=== PATIENT | female | born 1975 | race Caucasian/White ===

== ENCOUNTER 2016-11-20 09:03 | Emergency (ER) | payer OTHER ==
[~2016-11-20 09:03] MED LIST: CYCL5TAB PO; IBUP800T23 PO; Z.0.BCPILL PO
[2016-11-20 09:10] VITALS: BP 141/79; PULSE 84; RESP 20; TEMP 98.4; O2SAT 100
[2016-11-20] MEDS ORDERED: BIRTH CONTROL (09:15)
--- NOTE | 2016-11-20 09:32 | PD ---
HPI Chief Complaint: Anxiety Time Seen by Provider: 09:15 Travel History International Travel<30 days: No Contact w/Intl Traveler<30days: No Traveled to known affect area: No History of Present Illness HPI The patient was seen and examined in the presence of the nurse. This patient complains of feeling depressed and anxious for a long time, many years. However it's been worse lately. She is now having some vague suicidal thoughts. She does not have any specific plan and has not acted upon it. She doesn't think that she would. She does not have any physical complaints. She is a healthy person with no physical illness. Symptoms of depression and anxiety are moderate. PFSH Past Medical History Diminished Hearing: No Immunizations Current: Yes ?: Not Menopausal: No Social History Alcohol Use: Yes (OCCAS) Tobacco Use: No Substance Use: No Allergies-Medications (Allergen,Severity, Reaction): Coded Allergies: No Known Allergies (Unverified , 11/20/16) Reported Meds & Prescriptions Reported Meds & Active Scripts Active Reported [ Control ] Review of Systems General / Constitutional: No: Fever HENT: No: Headaches Cardiovascular: No: Chest Pain or Discomfort Respiratory: No: Cough Physical Exam Narrative CARDIOVASCULAR: Regular rate and rhythm without murmur. Extremities showed no edema or varicosities. RESPIRATORY: Respiratory effort unlabored, no retractions or use of accessory muscles. Breath sounds are clear and symmetric. GASTROINTESTINAL: Abdomen soft, non-tender, nondistended. Positive bowel sounds. No hepato-splenomegaly, or palpable masses. No guarding. SKIN: Focused skin assessment reveals no rash or ulcers. Skin is warm and dry. Palpation shows no induration or nodules. Data Data Last Documented VS Vital Signs Date Time Temp Pulse Resp B/P Pulse Ox O2 Delivery O2 Flow Rate FiO2 11/20/16 09:10 98.4 84 20 141/79 100 MDM Medical Decision Making Medical Screen Exam Complete: Yes Emergency Medical Condition: Yes Medical Record Reviewed: Yes Differential Diagnosis Depression, suicidal ideation, adjustment disorder, anxiety Narrative Course I have reviewed the patient's electronic medical record. Patient is medically clear and stable. She has normal exam physically and normal vital signs and no physical complaint. I don't feel she needs any medical workup. However she needs psychiatric screening at the main hospital. She is agreeable and voluntary and therefore not appropriate to do Courtney act. She has a friend who is going to drive her to the main hospital to get psych screening I called to [facility] and gave report Diagnosis Primary Impression: Suicidal ideation Additional Impressions: Depression Qualified Code: F32.9 - Depression, unspecified depression type Anxiety Additional Instructions: Proceed to [facility] ER for psychiatric evaluation Med/Other Pt SpecificInfo: Other Disposition: 01 DISCHARGE HOME Condition: Stable Ricky Meléndez MD November 20, 2016 09:32
== END 2016-11-20 09:41 | disposition home or self-care (01) ==
LOC: PHEFT 09:03
DX: R45.851 Suicidal ideations (principal); F32.9 Major depressive disorder, single episode, unspecified; F41.9 Anxiety disorder, unspecified
CPT/HCPCS: 99283

== ENCOUNTER 2016-11-20 10:05 | Emergency (ER) | payer OTHER ==
[~2016-11-20] VITALS: Ht 165.1 cm; Wt 60.0 kg
[~2016-11-20 10:05] MED LIST changes: +BIRTH CONTROL
[2016-11-20 10:06] VITALS: BP 134/83; PULSE 67; RESP 15; TEMP 98.2; O2SAT 98
--- NOTE | 2016-11-20 10:39 | PD ---
HPI Chief Complaint: Psychiatric Symptoms Time Seen by Provider: 10:35 Travel History International Travel<30 days: No Contact w/Intl Traveler<30days: No Traveled to known affect area: No History of Present Illness HPI This is a 41-year-old female who struggles with depression and anxiety who presents to the emergency department with worsening symptoms. She was seen at [place] and transferred here by Dr. Meléndez for evaluation. PFSH Past Medical History Medical History: Denies Significant Hx Diminished Hearing: No Immunizations Current: Yes Tetanus Vaccination: < 5 Years Influenza Vaccination: No ?: Not LMP: 11/20/16 Menopausal: No Past Surgical History Surgical History: No Previous Surgery Social History Alcohol Use: Yes (OCCAS) Tobacco Use: No Substance Use: No Allergies-Medications (Allergen,Severity, Reaction): Coded Allergies: No Known Allergies (Unverified , 11/20/16) Reported Meds & Prescriptions Reported Meds & Active Scripts Active Reported [ Control ] Review of Systems Cardiovascular: No: Chest Pain or Discomfort Physical Exam Narrative GENERAL: Well-appearing, no acute distress, nontoxic SKIN: Warm and dry. HEAD: Atraumatic. Normocephalic. ENT: No nasal bleeding or discharge. Moist mucous membranes MUSCULOSKELETAL: No obvious deformities. No clubbing. No cyanosis. No edema. NEUROLOGICAL: Awake and alert. No obvious cranial nerve deficits. Motor grossly within normal limits. Normal speech. PSYCHIATRIC: Appropriate mood and affect; insight and judgment normal. Data Data Last Documented VS Vital Signs Date Time Temp Pulse Resp B/P Pulse Ox O2 Delivery O2 Flow Rate FiO2 11/20/16 10:13 70 18 11/20/16 10:06 98.2 134/83 98 [facility] Medical Decision Making Medical Screen Exam Complete: Yes Emergency Medical Condition: Yes Differential Diagnosis Depression, anxiety Narrative Course This is a 41-year-old female who is sent from [place] for evaluation for decompensated depression and anxiety symptoms. Patient will be evaluated by psychiatry. Bhumika Westbrook MD November 20, 2016 10:39
[2016-11-20 13:43] VITALS: BP 130/87; PULSE 78; RESP 18; TEMP 99; O2SAT 98
[2016-11-20 14:30] VITALS: BP_SYST 130; BP_SYST 138; BP_DIAS 81; BP_DIAS 87; PULSE 69; PULSE 78; RESP 18; TEMP 99; O2SAT 98
[2016-11-20 14:40] LABS: AUTOMATED NEUTROPHIL # 7.3 TH/MM3 (1.8-7.7); BASOPHIL # 0.1 TH/MM3 (0-0.2); BASOPHIL % 0.8 % (0.0-2.0); EOSINOPHIL % 0.5 % (0.0-4.0); HEMATOCRIT 41.2 % (35.0-46.0); HEMO FLAGS DIFF FINAL; LYMPH % 16.7 % (9.0-44.0); LYMPHOCYTE # 1.6 TH/MM3 (1.0-4.8); MEAN CELL VOLUME 90.6 FL (80.0-100.0); MEAN CORPUSCULAR HEMOGLOBIN 30.3 PG (27.0-34.0); MEAN CORPUSCULAR HGB CONC 33.5 % (32.0-36.0); MONO % 4.1 % (0.0-8.0); NEUT % 77.9 % (16.0-70.0); PLATELET COUNT 241 TH/MM3 (150-450); RED BLOOD COUNT 4.55 MIL/MM3 (4.00-5.30); RED CELL DISTRIBUTION WIDTH 12.9 % (11.6-17.2); WHITE BLOOD COUNT 9.3 TH/MM3 (4.0-11.0)
[2016-11-20 14:48] LABS: BLOOD, URINE SMALL (NEG); COMMENT (UR) CULT NOT INDICATED; CULTURE IF INDICATED CULT NOT INDICATED; GLUCOSE,URINE NEG (NEG); KETONE, URINE 10 mg/dL (NEG); NITRITE,URINE NEG (NEG); PH, URINE 6.5 (5.0-8.5); SQUAMOUS EPITHELIAL CELL URINE 1 /hpf (0-5); URINE COLOR LIGHT-YELLOW (YELLW/STRAW)
[2016-11-20 14:55] LABS: AMPHETAMINE, URINE NEG (NEG); BARBITURATES, URINE NEG (NEG); COCAINE, URINE NEG (NEG)
[2016-11-20 15:03] LABS: ALT (GPT) 23 U/L (10-53); ANION GAP 5 MEQ/L (5-15); AST (GOT) 18 U/L (15-37); BICARBONATE 27.4 MEQ/L (21.0-32.0); BLOOD UREA NITROGEN 12 MG/DL (7-18); CHLORIDE 106 MEQ/L (98-107); GLOMERULAR FILTRATION RATE 75 ML/MIN (>89); POTASSIUM 4.8 MEQ/L (3.5-5.1); SODIUM (NA) 138 MEQ/L (136-145)
[2016-11-20 15:05] LABS: ALKALINE PHOSPHATASE 39 U/L (45-117); TOTAL BILIRUBIN ADULT 0.9 MG/DL (0.2-1.0)
[2016-11-20 17:21] VITALS: BP 138/81; TEMP 98.1
== END 2016-11-20 17:42 | disposition home or self-care (01) ==
LOC: NEPC 10:05 → NEPJ 17:42
DX: F41.8 Other specified anxiety disorders (principal)
CPT/HCPCS: 80053; 80307; 81001; 85025; 99283